=== PATIENT | female | born 1970 | race Caucasian/White ===

== ENCOUNTER 2018-07-25 08:02 | Inpatient (IN) | payer MEDICAID ==
[~2018-07-25] VITALS: Ht 162.6 cm; Wt 36.3 kg
[~2018-07-25 08:02] MED LIST: BACL10TA
[2018-07-25] MEDS ORDERED: SODIUM CHLORIDE 0.9% 1,000 ML IV ONE (08:24)
[2018-07-25] MEDS ORDERED: LEVOFLOXACIN 500 MG/100 ML PREMIX BAG IV ONE (08:30)
[2018-07-25] MEDS ORDERED: LORazepam 2MG/ML-1ML VIAL IV ONE (08:30)
[2018-07-25 09:12] LABS: Basophils # (auto) 0 uL; Basophils % (auto) 0.1 % (0.0-2.0); Eosinophils # (auto) 0 uL; Hematocrit 37.8 % (36.0-46.0); Hemoglobin 12.3 g/dL (12.2-16.2); Lymphocytes # (auto) 0.5 uL; Lymphocytes % (auto) 4.5 % (10.0-50.0); Mean Corpuscular Hgb Conc. 32.6 g/dL (32.0-36.0); Mean Corpuscular Volume 95.1 fL (80.0-100.0); Monocytes # (auto) 0.1 uL; Monocytes % (auto) 1.4 % (0.0-12.0); Neutrophils # (auto) 9.8 uL; Nucleated Red Blood Cells % 0.1 %; Platelet Count (auto) 300 10^3/uL (140-450); Red Blood Cells 3.97 10^6/uL (4.0-5.20); Red Cell Distribution Width 15.3 % (11.8-14.3); White Blood Cell 10.5 10^3/uL (4.4-10.8)
[2018-07-25 09:19] LABS: Urine Amorphous Crystal FEW /hpf (None Seen); Urine Bacteria MANY /hpf (None Seen); Urine Blood Negative /uL (Negative); Urine Specific Gravity 1.018 (1.001-1.035); Urine WBC 35 /hpf (0 - 5)
[2018-07-25 09:26] LABS: INR 0.93 (0.9-1.15); Partial Thromboplastin Time 25.2 sec (23.78-33.04)
[2018-07-25 09:31] LABS: Alanine Aminotransferase 41 U/L (13-56); Albumin 4.7 g/dL (3.4-5.0); Anion Gap 9 (5-15); Aspartate Aminotransferase 33 U/L (15-37); BUN/Creatinine Ratio 37.4; Blood Urea Nitrogen 43 mg/dL (7-18); Calcium 9.3 mg/dL (8.5-10.1); Carbon Dioxide 28 mmol/L (21-32); Chloride 100 mmol/L (98-107); GFR African American 64 mL/min; GFR Non-African American 53 mL/min; Glucose 198 mg/dL (74-106); Magnesium 2.3 mg/dL (1.6-2.6); Potassium 3.9 mmol/L (3.5-5.1); Sodium 137 mmol/L (136-145)
[2018-07-25 09:34] LABS: Lactic Acid w/Reflex 2.9 mmol/L (0.4-2.0)
[2018-07-25 09:40] LABS: Alkaline Phosphatase 132 U/L (45-117); Bilirubin, Total 0.2 mg/dL (0.2-1.0)
[2018-07-25] MEDS ORDERED: cefTRIAXone 1GM/50ML D5W 50 ML IV ONE (12:45)
[2018-07-25] MEDS ORDERED: VANCOMYCIN PER PHARMACY 0 MG IV SCH (12:45)
[2018-07-25] MEDS ORDERED: MORPHINE SULFATE 4 MG/ML SYR/VIAL IV PRN (12:45)
[2018-07-25] MEDS ORDERED: HYDROcodone-ACET 10/325MG TAB PO PRN (12:45)
[2018-07-25] MEDS ORDERED: ONDANSETRON HCL 4 MG/2 ML VIAL IV PRN (12:45)
[2018-07-25] MEDS: SODIUM CHLORIDE 0.9% 1,000 ML IV SCH ×2 (13:10→21:51)
[2018-07-25] MEDS: VANCOMYCIN 500 MG in D5W 5% 100 ML IV SCH (15:35)
[2018-07-25 17:00] VITALS: BP 154/56
[2018-07-25 22:27] VITALS: BP 129/110
[2018-07-26 05:20] VITALS: BP 171/110
[2018-07-26 06:21] LABS: Basophils # (auto) 0.1 uL; Eosinophils # (auto) 0.1 uL; Hemoglobin 10.6 g/dL (12.2-16.2); Lymphocytes # (auto) 2.8 uL; Lymphocytes % (auto) 30.2 % (10.0-50.0); Mean Corpuscular Hemoglobin 30.9 pg (28.0-32.0); Mean Corpuscular Hgb Conc. 32.3 g/dL (32.0-36.0); Mean Corpuscular Volume 95.8 fL (80.0-100.0); Monocytes # (auto) 0.7 uL; Neutrophils # (auto) 5.6 uL; Neutrophils % (auto) 59.8 % (37.0-80.0); Platelet Count (auto) 278 10^3/uL (140-450); Red Blood Cells 3.44 10^6/uL (4.0-5.20); Red Cell Distribution Width 15.3 % (11.8-14.3); White Blood Cell 9.3 10^3/uL (4.4-10.8)
[2018-07-26 06:45] LABS: Calcium 8.5 mg/dL (8.5-10.1); Potassium 4.6 mmol/L (3.5-5.1)
[2018-07-26 06:47] LABS: BUN/Creatinine Ratio 41.4
[2018-07-26] MEDS: BACLOFEN 10 MG TAB PO PRN (08:40)
[2018-07-26 09:00] VITALS: BP 182/98
[2018-07-26] MEDS: cefTRIAXone 1GM/50ML D5W 50 ML IV SCH (12:08)
[2018-07-26] MEDS: PANTOPRAZOLE 40 MG/10 ML VIAL IV SCH (12:09)
[2018-07-26] MEDS: SODIUM CHLORIDE 0.9% 1,000 ML IV SCH ×3 (12:10→20:33)
[2018-07-26 13:00] VITALS: BP 111/80
[2018-07-26] MEDS: VANCOMYCIN 500 MG in D5W 5% 100 ML IV SCH (15:10)
[2018-07-26 17:00] VITALS: BP 152/86
[2018-07-26 19:59] LABS: Urine Bacteria NONE SEEN /hpf (None Seen); Urine Blood 2+ /uL (Negative); Urine WBC 10 /hpf (0 - 5)
[2018-07-26 22:00] VITALS: BP 111/68
[2018-07-26] MEDS: CYCLOBENZAPRINE HCL 10 MG TAB PO SCH (22:00)
[2018-07-27] MEDS: BACLOFEN 10 MG TAB PO PRN (03:55)
[2018-07-27 05:48] VITALS: BP 142/78
[2018-07-27] MEDS: CYCLOBENZAPRINE HCL 10 MG TAB PO SCH (06:00)
[2018-07-27 08:20] VITALS: BP 147/91
[2018-07-27] MEDS: cefTRIAXone 1GM/50ML D5W 50 ML IV SCH (09:14)
[2018-07-27] MEDS: PANTOPRAZOLE 40 MG/10 ML VIAL IV SCH (09:14)
[2018-07-27] MEDS: SODIUM CHLORIDE 0.9% 1,000 ML IV SCH (10:41)
[2018-07-27] MEDS ORDERED: CIPR-173 PO (11:15)
[2018-07-27 11:39] VITALS: BP 131/86
[2018-07-27] MEDS ORDERED: CIPROFLOXACIN HCL 500 MG TAB PO SCH (11:44)
== END 2018-07-27 17:05 | disposition home or self-care (01) | DRG 463 ==
LOC: EDBD 08:02 → ER 08:04 → OVERFLOW 08:05 → TELE-WESTW 14:30 → WEST WING 07-27 11:37
PROVIDERS: ADMIT Internal Medicine; ATTEND Hospitalist
DX: N39.0 Urinary tract infection, site not specified (principal); G82.50 Quadriplegia, unspecified; R64 Cachexia; E86.0 Dehydration; F32.9 Major depressive disorder, single episode, unspecified; R62.7 Adult failure to thrive; F41.9 Anxiety disorder, unspecified; J44.9 Chronic obstructive pulmonary disease, unspecified; Z68.1 Body mass index [BMI] 19.9 or less, adult; Z82.49 Family history of ischemic heart disease and other diseases of the circulatory system; Z83.3 Family history of diabetes mellitus; Z74.01 Bed confinement status
CPT/HCPCS: 36415; 51702; 71045; 80048; 80053; 81001; 83605; 83735; 84484; 85025; 85610; 85730; 87040; 87086; 87088; 87186; 93005; 96361; 96374; 96375; 99291; C9113; G0378; J0696; J1956; J7060